=== PATIENT | male | born 1995 | race African-American/Black ===

== ENCOUNTER 2017-04-01 16:57 | Emergency (ER) | payer SELFPAY ==
[~2017-04-01] VITALS: Ht 185.4 cm; Wt 75.0 kg
[2017-04-01 16:59] VITALS: BP 141/69; PULSE 79; RESP 15; TEMP 98.1; O2SAT 98
--- NOTE | 2017-04-01 17:06 | PD ---
Physical Exam Time Seen by Provider: 17:04 Narrative 21yo M requesting STD and herpes check. Exposed to genital herpes. Unknown exposure to STI. Denies lesions, penile drainage, dysuria. Denies fever, N, V. Girlfriend is here to get checked out too. Patient seen in triage. VS reviewed. Awaiting bed placement. Data Data Last Documented VS Vital Signs Date Time Temp Pulse Resp B/P (MAP) Pulse Ox O2 Delivery O2 Flow Rate FiO2 04/01/17 16:59 98.1 79 15 141/69 (93) 98 MDM Supervised Visit with MELANI: Magda Pierre Apr 01, 2017 17:06
--- NOTE | 2017-04-01 17:25 | PD ---
HPI . wants STD screening Chief Complaint: Complaint Time Seen by Provider: 17:09 Travel History International Travel<30 days: No Contact w/Intl Traveler<30days: No Traveled to known affect area: No History of Present Illness HPI 21 yr old male here stating he was exposed to someone who has Herpes. He has no symptoms, but just wants to be checked out. He c/o itching in his private parts. He does admit to shaving. He denies any penile lesions or discharge. History Social History Alcohol Use: Yes Tobacco Use: No Allergies-Medications (Allergen,Severity, Reaction): Coded Allergies: No Known Allergies (Unverified , 04/01/17) Review of Systems General / Constitutional: No: Fever Eyes: No: Visual changes HENT: No: Headaches Cardiovascular: No: Chest Pain or Discomfort Respiratory: No: Shortness of Breath Gastrointestinal: No: Abdominal Pain Genitourinary: No: Dysuria Musculoskeletal: No: Pain Skin: No Rash Neurologic: No: Weakness Psychiatric: No: Depression Endocrine: No: Polydipsia Hematologic/Lymphatic: No: Easy Bruising Physical Exam Narrative GENERAL: AAO x 3, no acute distress, Well-nourished, well-developed patient. SKIN: Warm and dry. No visible rashes or bruising. HEAD: Normocephalic and atraumatic. EYES: No scleral icterus. No injection or drainage. ENT: No nasal drainage noted. Mucous membranes pink. Airway patent. NECK: Supple, trachea midline. No JVD. CARDIOVASCULAR: Regular rate and rhythm without murmurs, gallops, or rubs. RESPIRATORY: Breath sounds equal bilaterally. No accessory muscle use. No rhonchi or rales. GASTROINTESTINAL: Abdomen soft, non-tender, nondistended. GENITALS: Pedro CHU present: no penile discharge, no rashes, lesions or visible abnormality. EXTREMITIES: No cyanosis or edema. BACK: Nontender without obvious deformity. No CVA tenderness. NEURO: CN II-12 intact, PSYCH: AAO x 3, normal affect. Data Data Last Documented VS Vital Signs Date Time Temp Pulse Resp B/P (MAP) Pulse Ox O2 Delivery O2 Flow Rate FiO2 04/01/17 16:59 98.1 79 15 141/69 (93) 98 MDM Medical Screen Exam Complete: Yes Emergency Medical Condition: No Differential Diagnosis wellness exam, STD screening, less likely herpes Narrative Course A medical screening exam was performed: At the time of evaluation the presenting medical condition was determined not to be of an emergent nature. The patient was given the option of receiving additional care, but declined. Patient was given options for additional community resources from which to obtain care. The Patient Has Been advised to seek medical attention for their presenting complaint. The patient has been advised to return to the ER at any time if an emergent condition develops. Discussed with patient that itching likely related to shaving. Primary Impression: Encounter for medical screening examination Condition: Stable Birgit Whitfield Apr 01, 2017 17:25
== END 2017-04-01 17:32 | disposition left against medical advice (07) ==
LOC: NEPK 16:57
DX: Z20.2 Contact with and (suspected) exposure to infections with a predominantly sexual mode of transmission (principal); L29.9 Pruritus, unspecified
CPT/HCPCS: 99281